=== PATIENT | male | born 1995 | race Caucasian/White ===

== ENCOUNTER → 2020-07-24 | Outpatient (CLI) | payer SELFPAY ==
--- NOTE | 2020-07-25 08:36 | RAD ---
EXAM: Lumbar Spine 3 Views CLINICAL HISTORY: LOW BACK PAIN COMPARISON STUDY: None. TECHNICAL: AP and lateral views. FINDINGS: Vertebral bodies are in normal alignment. Disc spaces are well preserved. No compression deformities. IMPRESSION: NEGATIVE LUMBAR SPINE. Electronically signed by: Rick Ward MD 07/25/2020 8:34 AM CDT
== END ==
LOC: RAD 16:24
PROVIDERS: ATTEND Chiropractor
DX: M54.5 Low back pain (principal)